=== PATIENT | male | born 1975 | race Caucasian/White ===

== ENCOUNTER 2020-12-15 21:43 | Emergency (ER) | payer BC, OTHER ==
[~2020-12-15] VITALS: Ht 188 cm; Wt 136.1 kg
[2020-12-15 21:46] VITALS: BP 130/80
[2020-12-15] MEDS ORDERED: ZOFRAN ODT4 MG PO (23:08)
== END 2020-12-15 23:45 | disposition home or self-care (01) ==
LOC: ER 21:43
DX: U07.1 COVID-19 (principal); R50.9 Fever, unspecified; M19.90 Unspecified osteoarthritis, unspecified site